=== PATIENT | male | born 1955 | race African-American/Black ===

== ENCOUNTER 2017-06-24 13:55 | Inpatient (IN) | payer SELFPAY ==
[~2017-06-24] VITALS: Ht 167.6 cm; Wt 93.0 kg
[~2017-06-24 13:55] MED LIST: PREV15CA20 PO
[2017-06-24 13:56] VITALS: BP 142/76; PULSE 96; RESP 18; TEMP 99.4; O2SAT 98
[2017-06-24] MEDS ORDERED: IOHEXOL 350 MG/ML 10 ML VIAL (for RAD DIAG) IVCONTRAST ONE (13:56)
--- NOTE | 2017-06-24 15:41 | PD ---
HPI Chief Complaint: Skin Problem Time Seen by Provider: 15:35 Travel History International Travel<30 days: No Contact w/Intl Traveler<30days: No Traveled to known affect area: No History of Present Illness HPI 62-year-old Afro-[place]ian male presents the emergency department. Large abscess to the right upper medial thigh/groin which she states started 2-3 days ago. Patient states it is grown in size with small amount of brownish drainage in the last 24 hours. Patient went to urgent care was noted to have a fever 102. Vital signs today show borderline tachycardia with a pulse rate of 96. Temperature in triage is 99. Blood pressure is normal. States pain in the groin area is about a 7 out of 10. He has history of sepsis in the past from previous prostate biopsy several years ago. Patient is allergic to tetracycline. The patient is not diabetic and has no history of MRSA. [facility] Social History Alcohol Use: Yes Tobacco Use: No Substance Use: No Allergies-Medications (Allergen,Severity, Reaction): Coded Allergies: Tetracyclines (Verified Allergy, Mild, Lethargy, 06/24/17) Reported Meds & Prescriptions Reported Meds & Active Scripts Active Reported Multiple Vitamin 1 Tab 1 Tab PO DAILY Aspirin 81 Mg Chew 81 Mg CHEW DAILY Prevacid (Lansoprazole) 15 Mg Capdr 15 Mg PO DAILY Review of Systems Except as stated in HPI: all other systems reviewed are Neg General / Constitutional: Positive: Fever, Chills Eyes: No: Visual changes HENT: No: Headaches Cardiovascular: No: Chest Pain or Discomfort Respiratory: No: Shortness of Breath Gastrointestinal: No: Abdominal Pain Genitourinary: No: Dysuria Musculoskeletal: Positive: Myalgias, No: Pain Skin: Positive Lesions (see history of present illness), No Rash Neurologic: No: Weakness Psychiatric: No: Depression Endocrine: No: Polydipsia Hematologic/Lymphatic: No: Easy Bruising Physical Exam Narrative GENERAL: Patient appears stable at time of exam 00 uncomfortable. SKIN: Warm and dry. Normal color. Normal turgor. Patient has a large indurated swollen firm tender erythematous painful area to the right upper medial thigh consistent with large abscess with central necrosis and small amount of brownish drainage. It does not seem to extend into the scrotal area or perineum. The area measures approximately 12 cm x 10 cm. HEAD: Atraumatic. Normocephalic. EYES: Pupils equal and round. No scleral icterus. No injection or drainage. ENT: No nasal bleeding or discharge. Mucous membranes pink and moist. Pharynx clear, airway patent. NECK: Trachea midline. Supple and nontender. CARDIOVASCULAR: Regular rate and rhythm. RESPIRATORY: No accessory muscle use. Clear to auscultation. Breath sounds equal bilaterally. GASTROINTESTINAL: Abdomen soft, non-tender, nondistended. Hepatic and splenic margins not palpable. MUSCULOSKELETAL: Extremities without clubbing, cyanosis, or edema. No obvious deformities. NEUROLOGICAL: Awake and alert. No obvious cranial nerve deficits. Motor grossly within normal limits. Five out of 5 muscle strength in the arms and legs. Normal speech. PSYCHIATRIC: Appropriate mood and affect; insight and judgment normal. Data Data Last Documented VS Vital Signs Date Time Temp Pulse Resp B/P (MAP) Pulse Ox O2 Delivery O2 Flow Rate FiO2 06/24/17 16:18 101.2 87 17 131/84 (100) 98 Room Air Orders Orders Complete Blood Count With Diff (06/24/17 14:06) Basic Metabolic Panel (Bmp) (06/24/17 14:06) Act Partial Throm Time (Ptt) (06/24/17 14:06) Prothrombin Time / Inr (Pt) (06/24/17 14:06) Blood Culture (06/24/17 15:46) Wound Culture And Gram Stain (06/24/17 15:46) Iv Access Insert/Monitor (06/24/17 15:46) Ketorolac Inj (Toradol Inj) (06/24/17 16:00) Sodium Chloride 0.9% Flush (Ns Flush) (06/24/17 16:00) Clindamycin Inj (Cleocin Inj) (06/24/17 16:00) Lactic Acid (06/24/17 15:46) Ct Femur W Iv Contrast (06/24/17 ) Clindamycin 900 Mg/Ns Premix (Cleocin 90 (06/24/17 16:30) Iohexol 350 Inj (Omnipaque 350 Inj) (06/24/17 13:56) Vancomycin Inj (Vancomycin Inj) (06/24/17 17:30) Piperacil-Tazo 4.5 Gm Premix (Zosyn 4.5 (06/24/17 17:30) Admit Order (Ed Use Only) (06/24/17 17:23) Admit To Inpatient (06/24/17 ) Vital Signs (Adult) Q4H (06/24/17 17:24) Activity Oob With Assistance (06/24/17 17:24) Sodium Chloride 0.9% Flush (Ns Flush) (06/24/17 17:30) Sodium Chloride 0.9% Flush (Ns Flush) (06/24/17 21:00) Acetaminophen (Tylenol) (06/24/17 17:30) Ondansetron Inj (Zofran Inj) (06/24/17 17:30) Scd Bilateral/Knee High JUANY.BID (06/24/17 17:24) Naloxone Inj (Narcan Inj) (06/24/17 17:30) Bisacodyl Supp (Dulcolax Supp) (06/24/17 17:30) Inpatient Certification (06/24/17 ) Vancomycin Consult Pharmacy (Vancomycin (06/24/17 17:30) Piperacil-Tazo 3.375 Gm Premix (Zosyn 3. (06/24/17 22:30) Labs Laboratory Tests Test 06/24/17 15:03 06/24/17 16:00 06/24/17 16:18 White Blood Count 13.0 TH/MM3 Red Blood Count 5.37 MIL/MM3 Hemoglobin 16.6 GM/DL Hematocrit 48.4 % Mean Corpuscular Volume 90.0 FL Mean Corpuscular Hemoglobin 30.9 PG Mean Corpuscular Hemoglobin Concent 34.3 % Red Cell Distribution Width 14.0 % Platelet Count 226 TH/MM3 Mean Platelet Volume 7.9 FL Neutrophils (%) (Auto) 79.4 % Lymphocytes (%) (Auto) 10.6 % Monocytes (%) (Auto) 8.3 % Eosinophils (%) (Auto) 1.1 % Basophils (%) (Auto) 0.6 % Neutrophils # (Auto) 10.3 TH/MM3 Lymphocytes # (Auto) 1.4 TH/MM3 Monocytes # (Auto) 1.1 TH/MM3 Eosinophils # (Auto) 0.1 TH/MM3 Basophils # (Auto) 0.1 TH/MM3 CBC Comment DIFF FINAL Differential Comment Blood Urea Nitrogen 13 MG/DL Creatinine 1.08 MG/DL Random Glucose 104 MG/DL Calcium Level 8.9 MG/DL Sodium Level 135 MEQ/L Potassium Level 4.4 MEQ/L Chloride Level 102 MEQ/L Carbon Dioxide Level 28.9 MEQ/L Anion Gap 4 MEQ/L Estimat Glomerular Filtration Rate 84 ML/MIN Lactic Acid Level 1.8 mmol/L Prothrombin Time 10.1 SEC Prothromb Time International Ratio 1.0 RATIO Activated Partial Thromboplast Time 27.5 SEC MDM Medical Decision Making Medical Screen Exam Complete: Yes Emergency Medical Condition: Yes Differential Diagnosis Cellulitis. Abscess. Sepsis. MRSA. Narrative Course Patient is medically stable at time of exam. Laboratory CBC, CMP, lactic acid, blood cultures 2, coagulation studies and urinalysis. Wound culture is collected and sent to the lab. IV access is obtained patient is given 1000 mL was normal saline bolus. Patient is given 900 mg clindamycin IV. Patient is given Toradol [address] of the right femur with IV contrast is ordered to evaluate abscess extension. CBC shows leukocytosis of 13.0. Coagulation studies are unremarkable Chemistry shows sodium 135, normal BUN/creatinine, GFR is 84, lactic acid is normal at 1.8. Patient is noted to spike a fever to 101. Patient qualifies for sepsis criteria. Patient discussed with Dr. Samaniego who examined the patient as well. He recommends adding Zosyn and vancomycin to the antibiotic coverage. CT scan shows: There is a very impressive soft tissue swelling and skin thickening in the anteromedial right thigh. There is a 2.2 cm air collection within the subcutaneous fat. Just posterior to the air collection there is a small collection of fluid measuring 1.8 cm across. There is very impressive induration of the subcutaneous fat. The air collection is directly underneath the skin. Call was placed hospitalist to admit the patient. Surgical consult will be determined by the hospitalist. Sepsis Criteria SIRS Criteria (2 or more): Temp > 100.9 or < 96.8, Heart rate over 90, WBC > 83829, < 4000 or > 10% bands Sepsis Criteria (SIRS+source): Infect source susp/known Criteria Outcome: Meets SIRS criteria, Meets sepsis criteria Diagnosis Primary Impression: Sepsis affecting skin Admitting Information Admitting Physician Requests: Admit Condition: Stable Cristian Brown Jun 24, 2017 15:41
[2017-06-24 15:53] LABS: AUTOMATED NEUTROPHIL # 10.3 TH/MM3 (1.8-7.7); BASOPHIL # 0.1 TH/MM3 (0-0.2); BASOPHIL % 0.6 % (0.0-2.0); EOSINOPHIL # 0.1 TH/MM3 (0-0.4); EOSINOPHIL % 1.1 % (0.0-4.0); HEMATOCRIT 48.4 % (39.0-51.0); HEMOGLOBIN 16.6 GM/DL (13.0-17.0); LYMPH % 10.6 % (9.0-44.0); LYMPHOCYTE # 1.4 TH/MM3 (1.0-4.8); MEAN CORPUSCULAR HEMOGLOBIN 30.9 PG (27.0-34.0); MEAN CORPUSCULAR HGB CONC 34.3 % (32.0-36.0); MEAN PLATELET VOLUME 7.9 FL (7.0-11.0); MONO % 8.3 % (0.0-8.0); MONOCYTE # 1.1 TH/MM3 (0-0.9); NEUT % 79.4 % (16.0-70.0); PLATELET COUNT 226 TH/MM3 (150-450); RED BLOOD COUNT 5.37 MIL/MM3 (4.50-5.90)
[2017-06-24] MEDS ORDERED: ASPI-516 CHEW (15:56)
[2017-06-24] MEDS ORDERED: MULTTAB67 PO (15:56)
[2017-06-24 15:59] LABS: BICARBONATE 28.9 MEQ/L (21.0-32.0); CALCIUM 8.9 MG/DL (8.5-10.1); CREATININE 1.08 MG/DL (0.60-1.30)
[2017-06-24] MEDS ORDERED: SODIUM CHLORIDE 0.9% FLUSH 10 ML FLUSH IVF PRN (16:00)
[2017-06-24] MEDS ORDERED: CLINDAMYCIN INJ 900 MG in SODIUM CHLORIDE 0.9% INJ 100 ML IV ONE (16:00)
[2017-06-24] MEDS ORDERED: KETOROLAC TROMETHAMINE 30 MG/ML (IVP) VIAL IVP ONE (16:00)
[2017-06-24 16:18] VITALS: BP 131/84; PULSE 87; RESP 17; TEMP 101.2; O2SAT 98
--- NOTE | 2017-06-24 16:22 | PD ---
Data Data Last Documented VS Vital Signs Date Time Temp Pulse Resp B/P (MAP) Pulse Ox O2 Delivery O2 Flow Rate FiO2 06/24/17 16:18 101.2 87 17 131/84 (100) 98 Room Air Orders Orders Complete Blood Count With Diff (06/24/17 14:06) Basic Metabolic Panel (Bmp) (06/24/17 14:06) Act Partial Throm Time (Ptt) (06/24/17 14:06) Prothrombin Time / Inr (Pt) (06/24/17 14:06) Blood Culture (06/24/17 15:46) Wound Culture And Gram Stain (06/24/17 15:46) Iv Access Insert/Monitor (06/24/17 15:46) Ketorolac Inj (Toradol Inj) (06/24/17 16:00) Sodium Chloride 0.9% Flush (Ns Flush) (06/24/17 16:00) Clindamycin Inj (Cleocin Inj) (06/24/17 16:00) Lactic Acid (06/24/17 15:46) Ct Femur W Iv Contrast (06/24/17 ) Clindamycin 900 Mg/Ns Premix (Cleocin 90 (06/24/17 16:30) Iohexol 350 Inj (Omnipaque 350 Inj) (06/24/17 13:56) Vancomycin Inj (Vancomycin Inj) (06/24/17 17:30) Piperacil-Tazo 4.5 Gm Premix (Zosyn 4.5 (06/24/17 17:30) Admit Order (Ed Use Only) (06/24/17 17:23) Labs Laboratory Tests Test 06/24/17 15:03 06/24/17 16:00 06/24/17 16:18 White Blood Count 13.0 TH/MM3 Red Blood Count 5.37 MIL/MM3 Hemoglobin 16.6 GM/DL Hematocrit 48.4 % Mean Corpuscular Volume 90.0 FL Mean Corpuscular Hemoglobin 30.9 PG Mean Corpuscular Hemoglobin Concent 34.3 % Red Cell Distribution Width 14.0 % Platelet Count 226 TH/MM3 Mean Platelet Volume 7.9 FL Neutrophils (%) (Auto) 79.4 % Lymphocytes (%) (Auto) 10.6 % Monocytes (%) (Auto) 8.3 % Eosinophils (%) (Auto) 1.1 % Basophils (%) (Auto) 0.6 % Neutrophils # (Auto) 10.3 TH/MM3 Lymphocytes # (Auto) 1.4 TH/MM3 Monocytes # (Auto) 1.1 TH/MM3 Eosinophils # (Auto) 0.1 TH/MM3 Basophils # (Auto) 0.1 TH/MM3 CBC Comment DIFF FINAL Differential Comment Blood Urea Nitrogen 13 MG/DL Creatinine 1.08 MG/DL Random Glucose 104 MG/DL Calcium Level 8.9 MG/DL Sodium Level 135 MEQ/L Potassium Level 4.4 MEQ/L Chloride Level 102 MEQ/L Carbon Dioxide Level 28.9 MEQ/L Anion Gap 4 MEQ/L Estimat Glomerular Filtration Rate 84 ML/MIN Lactic Acid Level 1.8 mmol/L Prothrombin Time 10.1 SEC Prothromb Time International Ratio 1.0 RATIO Activated Partial Thromboplast Time 27.5 SEC MDM Supervised Visit with JENNIFER: Yes Narrative Course I, Dr. Antunez, have reviewed the advance practice practitioner's documentation and am in agreement, met with the patient face to face, made the diagnosis, and the medical decision making was done by me. *My assessment and Findings: Patient seen in examined by me in addition to Josse Brown PAC, patient has abscess on the upper inner thigh incredibly foul- smelling. Surrounding cellulitis, no involvement of the scrotum in penis at this time. Patient appears well, symptoms for the past 2-3 days, not rapidly expanding, no crepitance, is not actively draining. CAT scan shows focalized collection of air probably consistent with a necrotic abscess but there as no air that I can see tracking along the fascial planes which supports my low suspicion of necrotizing fasciitis. The sodium is not normal, further refuting the diagnosis of n necrotizing fasciitis. Patient will be admitted, started on broad-spectrum antibiotics including vancomycin Zosyn and clindamycin. Discussed with medicine. Diagnosis Primary Impression: Sepsis affecting skin Condition: Stable Colt Antunez MD Jun 24, 2017 16:22
[2017-06-24] MEDS ORDERED: CLINDAMYCIN 900 MG/NS PREMIX 50 ML IV ONE (16:30)
[2017-06-24 16:36] LABS: PROTHROMBIN TIME - PATIENT 10.1 SEC (9.8-11.6)
--- NOTE | 2017-06-24 17:09 | RADRPT ---
EXAM DATE/TIME: 06/24/2017 16:35 [place] COMPARISON: No previous studies available for comparison. INDICATIONS : Right femur abscess. IV CONTRAST: 92 cc Omnipaque 350 (iohexol) IV RADIATION DOSE: 15.89 CTDIvol (mGy) MEDICAL HISTORY : Carcinoma, prostate. SURGICAL HISTORY : Appendectomy. ENCOUNTER: Initial ACUITY: 3 days PAIN SCALE: 9/10 LOCATION: Right upper medial femur near groin. TECHNIQUE: Volumetric scanning of the femur was performed. Using automated exposure control and adjustment of t he mA and/or kV according to patient size, radiation dose was kept as low as reasonably achievable to obtain optimal diagnostic quality images. DICOM format image data is available electronically for review and comparison. FINDINGS: BONES: No evidence of fracture. Alignment is within normal limits. JOINTS: No evidence of joint narrowing or effusion. SOFT TISSUES: There is a very impressive soft tissue swelling and skin thickening in the anteromedial right thigh. There is a 2.2 cm air collection within the subcutaneous fat. Just posterior to the air collection th ere is a small collection of fluid measuring 1.8 cm across. There is very impressive induration of th e subcutaneous fat. The air collection is directly underneath the skin. CONCLUSION: Small collection of air and fluid directly underneath the skin wound. Markedly edematous subcutaneous fat and skin thickening in the anteromedial thigh. Scott Holden MD on June 24, 2017 at 17:04 Board Certified Radiologist. This report was verified electronically.
[2017-06-24] MEDS ORDERED: PIPERACIL-TAZO 4.5 GM PREMIX 100 ML IV ONE (17:30)
[2017-06-24] MEDS ORDERED: Vancomycin Consult Pharmacy 1 EA OTHER SCH (17:30)
[2017-06-24] MEDS ORDERED: ACETAMINOPHEN 325 MG TAB PO PRN (17:30)
[2017-06-24] MEDS ORDERED: VANCOMYCIN INJ 200 ML IV ONE (17:30)
[2017-06-24] MEDS ORDERED: NALOXONE HCL 0.4 MG/ML AMP IV PUSH PRN (17:30)
[2017-06-24] MEDS ORDERED: BISACODYL 10 MG SUPP RECTAL PRN (17:30)
[2017-06-24] MEDS ORDERED: SODIUM CHLORIDE 0.9% FLUSH 10 ML FLUSH IV FLUSH PRN (17:30)
[2017-06-24 17:47] VITALS: BP 102/55; PULSE 82; RESP 17; TEMP 99.8; O2SAT 97
[2017-06-24] MEDS ORDERED: VANCOMYCIN 1,000 MG/NS 250 ML IV ONE ×2 (18:00)
[2017-06-24 19:33] VITALS: BP 112/56; PULSE 80; RESP 17; O2SAT 99
[2017-06-24] MEDS ORDERED: ACETAMINOPHEN/HYDROcodone 325 MG/5 MG TAB PO PRN (20:30)
[2017-06-24] MEDS ORDERED: KETOROLAC TROMETHAMINE 30 MG/ML (IVP) VIAL IV PUSH PRN (20:30)
[2017-06-24] MEDS ORDERED: ACETAMINOPHEN/HYDROcodone 325 MG/7.5 MG TAB PO PRN (20:30)
--- NOTE | 2017-06-24 20:52 | HHI.HP ---
[facility] Primary [facility] Physician No Primary Care Physician Admission Diagnosis SEPSIS/Cellulitis/Abscess Diagnoses: Chief Complaint: Right thigh wound Travel History International Travel<30 Days: No Contact w/Intl Traveler <30 Da: No Traveled to Known Affected Are: No Sepsis Criteria SIRS Criteria (2 or more): Temp > 100.9 or < 96.8, Heart rate over 90 Sepsis Criteria (SIRS+source): Infect source susp/known History of Present Illness 62 y/o male with a history of gerd and prostate cancer presented to the ED with complains of a left thigh wound. Patient states 3 days ago he had a pimple on his right thigh near his groin that he tried to pop, and over the last few days it began draining brown drainage and is foul smelling. He does have associated fever and chills. Denies any chest pain, sob, nausea or vomiting. He denies any pain currently, states the pain was resolved with Toradol. Prior to the Toradol he states his pain was a 7/10 throbbing with no radiation or associated symptoms. Review of Systems Except as stated in HPI: all other systems reviewed are Neg Past Family Social History Past Medical History prostate cancer gerd Past Surgical History Proctectomy Cholecystectomy Reported Medications Reported Meds & Active Scripts Active Reported Multiple Vitamin 1 Tab 1 Tab PO DAILY Aspirin 81 Mg Chew 81 Mg CHEW DAILY Prevacid (Lansoprazole) 15 Mg Capdr 15 Mg PO DAILY Allergies: Coded Allergies: Tetracyclines (Verified Allergy, Mild, Lethargy, 06/24/17) Active Ordered Medications Current Medications Medications (Trade) Dose Ordered Sig/Anneliese Route Start Time Stop Time Status Last Admin (NS Flush) 2 ml UNSCH PRN IV FLUSH 06/24/17 17:30 (NS Flush) 2 ml BID IV FLUSH 06/24/17 21:00 (Tylenol) 650 mg Q4H PRN PO 06/24/17 17:30 (Zofran Inj) 4 mg Q6H PRN IVP 06/24/17 17:30 (Narcan Inj) 0.4 mg UNSCH PRN IV PUSH 06/24/17 17:30 (Dulcolax Supp) 10 mg DAILY PRN RECTAL 06/24/17 17:30 Pharmacy Profile Note 0 ml @ 0 mls/hr UNSCH OTHER 06/24/17 17:30 Piperacillin Sod/ Tazobactam Sod 50 ml @ 100 mls/hr Q6H IV 06/25/17 00:00 Vancomycin HCl 1000 mg/Sodium Chloride 250 ml @ 250 mls/hr Q12H IV 06/25/17 08:00 Family History Mom: HTN Dad: Kidney disease Social History Tobacco use: A few cigarettes a day Alcohol use: Occasionally Illicit drug use: Denies Physical Exam Vital Signs Vital Signs Date Time Temp Pulse Resp B/P (MAP) Pulse Ox O2 Delivery O2 Flow Rate FiO2 06/24/17 19:59 18 06/24/17 19:33 80 17 112/56 (74) 99 Room Air 06/24/17 17:47 82 17 102/55 (71) 97 Room Air 06/24/17 17:47 99.8 06/24/17 16:18 101.2 87 17 131/84 (100) 98 Room Air 06/24/17 13:56 99.4 96 18 142/76 (98) 98 Physical Exam GENERAL: This is a well-nourished, well-developed patient, in no apparent distress. SKIN: Right groin/ upper thigh lesion, draining brownish dressing, surrounding cellulitis, foul smelling HEAD: Atraumatic. Normocephalic. EYES: Pupils equal round and reactive. Extraocular motions intact. ENT: Nose without bleeding, purulent drainage or septal hematoma. Airway patent. NECK: Trachea midline. No JVD or lymphadenopathy. CARDIOVASCULAR: Regular rate and rhythm without murmurs, gallops, or rubs. RESPIRATORY: Clear to auscultation. Breath sounds equal bilaterally. No wheezes , rales, or rhonchi. GASTROINTESTINAL: Abdomen soft, non-tender, nondistended. No guarding. MUSCULOSKELETAL: Extremities without clubbing, cyanosis, or edema. Right thigh tenderness. No calf tenderness. NEUROLOGICAL: Awake and alert. Motor and sensory grossly within normal limits. Normal speech. Laboratory Laboratory Tests Test 06/24/17 15:03 06/24/17 16:00 06/24/17 16:18 White Blood Count 13.0 Red Blood Count 5.37 Hemoglobin 16.6 Hematocrit 48.4 Mean Corpuscular Volume 90.0 Mean Corpuscular Hemoglobin 30.9 Mean Corpuscular Hemoglobin Concent 34.3 Red Cell Distribution Width 14.0 Platelet Count 226 Mean Platelet Volume 7.9 Neutrophils (%) (Auto) 79.4 Lymphocytes (%) (Auto) 10.6 Monocytes (%) (Auto) 8.3 Eosinophils (%) (Auto) 1.1 Basophils (%) (Auto) 0.6 Neutrophils # (Auto) 10.3 Lymphocytes # (Auto) 1.4 Monocytes # (Auto) 1.1 Eosinophils # (Auto) 0.1 Basophils # (Auto) 0.1 CBC Comment DIFF FINAL Differential Comment Blood Urea Nitrogen 13 Creatinine 1.08 Random Glucose 104 Calcium Level 8.9 Sodium Level 135 Potassium Level 4.4 Chloride Level 102 Carbon Dioxide Level 28.9 Anion Gap 4 Estimat Glomerular Filtration Rate 84 Lactic Acid Level 1.8 Prothrombin Time 10.1 Prothromb Time International Ratio 1.0 Activated Partial Thromboplast Time 27.5 Date/Time Source Procedure Growth Status 06/24/17 16:00 Blood Peripheral Aerobic Blood Culture Pending Received 06/24/17 16:00 Blood Peripheral Anaerobic Blood Culture Pending Received 06/24/17 16:00 Wound Drainage Gram Stain - Final Resulted 06/24/17 16:00 Wound Drainage Wound Culture Pending Resulted Result Diagram: 06/24/17 1503 06/24/17 1503 Imaging Last Impressions Lower Extremity CT 06/24/17 0000 Signed Impressions: Service Date/Time: June 16:35 - CONCLUSION: Small collection of air and fluid directly underneath the skin wound. Markedly edematous subcutaneous fat and skin thickening in the anteromedial thigh. Scott Holden MD [place] VTE Risk Assessment Caprini VTE Risk Assessment: No/Low Risk (score <= 1) Caprini Risk Assessment Model Point Value = 1 Point Value = 2 Point Value = 3 Point Value = 5 Age 41-60 Minor surgery BMI > 25 kg/m2 Swollen legs Varicose veins or History of unexplained or recurrent spontaneous Oral contraceptives or hormone replacement Sepsis (< 1 month) Serious lung disease, including pneumonia (< 1 month) Abnormal pulmonary function Acute myocardial infarction Congestive heart failure (< 1 month) History of inflammatory bowel disease Medical patient at bed rest Age 61-74 Arthroscopic surgery Major open surgery (> 45 min) Laparoscopic surgery (> 45 min) Malignancy Confined to bed (> 72 hours) Immobilizing plaster cast Central venous access Age >= 75 History of VTE Family history of VTE Factor V Leiden Prothrombin 30632A Lupus anticoagulant Anticardiolipin antibodies Elevated serum homocysteine Heparin-induced thrombocytopenia Other congenital or acquired thrombophilia Stroke (< 1 month) Elective arthroplasty Hip, pelvis, or leg fracture Acute spinal cord injury (< 1 month) Prophylaxis Regimen Total Risk Factor Score Risk Level Prophylaxis Regimen 0-1 Low Early ambulation 2 Moderate Order ONE of the following: *Sequential Compression Device (SCD) *Heparin 5000 units SQ BID 3-4 Higher Order ONE of the following medications: *Heparin 5000 units SQ TID *Enoxaparin/Lovenox 40 mg SQ daily (WT < 150 kg, CrCl > 30 mL/min) *Enoxaparin/Lovenox 30 mg SQ daily (WT < 150 kg, CrCl > 10-29 mL/min) *Enoxaparin/Lovenox 30 mg SQ BID (WT < 150 kg, CrCl > 30 mL/min) AND/OR *Sequential Compression Device (SCD) 5 or more Highest Order ONE of the following medications: *Heparin 5000 units SQ TID (Preferred with Epidurals) *Enoxaparin/Lovenox 40 mg SQ daily (WT < 150 kg, CrCl > 30 mL/min) *Enoxaparin/Lovenox 30 mg SQ daily (WT < 150 kg, CrCl > 10-29 mL/min) *Enoxaparin/Lovenox 30 mg SQ BID (WT < 150 kg, CrCl > 30 mL/min) AND *Sequential Compression Device (SCD) Assessment and Plan Problem List: (1) Cellulitis ICD Code: L03.90 - Cellulitis, unspecified (2) Sepsis affecting skin ICD Code: A41.9 - Sepsis, unspecified organism Status: Acute Assessment and Plan 62 y/o male with a history of gerd and prostate cancer presented to the ED with complains of a left thigh wound. Sepsis per criteria, with cellulitis of the groin/thigh, foul smelling Temp 101.2, wbc 13.0, lactic 1.[address] reviewed and shows a small collection of air and fluid directly underneath the skin wound. Edematous subcutaneous fat and skin thickening in the anteromedial thigh. -IV antibiotics: Vancomycin and Zosyn -Consult general surgery for recommendations, possible I&D -Pain management with IV Toradol and PO [place] -Wound culture pending Gerd, chronic -Resume home medication DVT prophylaxis: SCDs Discussed Condition With Patient Physician Certification 2 Midnight Certification Type: Admission for Inpatient Services Order for Inpatient Services The services are ordered in accordance with Medicare regulations or non- Medicare payer requirements, as applicable. In the case of services not specified as inpatient-only, they are appropriately provided as inpatient services in accordance with the 2-midnight benchmark. Estimated LOS (days): 2 days is the estimated time the patient will need to remain in the hospital, assuming treatment plan goals are met and no additional complications. Post-Hospital Plan: Home Fannie Drummond Jun 24, 2017 20:52
[2017-06-24] MEDS: SODIUM CHLORIDE 0.9% FLUSH 10 ML FLUSH IV FLUSH SCH (21:00)
[2017-06-24 22:15] VITALS: BP 110/70; PULSE 66; RESP 20; TEMP 98.3; O2SAT 92
[2017-06-24] MEDS: PIPERACIL-TAZO 3.375 GM PREMIX 50 ML IV SCH (23:37)
[2017-06-25 01:32] VITALS: BP 102/55; PULSE 65; RESP 17; TEMP 98.2; O2SAT 96
[2017-06-25 04:13] VITALS: BP 113/65; PULSE 64; RESP 17; TEMP 98.5; O2SAT 96
[2017-06-25] MEDS: ONDANSETRON HCL 4 MG/2 ML VIAL IVP PRN ×2 (04:43→21:48)
[2017-06-25] MEDS: PIPERACIL-TAZO 3.375 GM PREMIX 50 ML IV SCH ×4 (05:33→23:24)
[2017-06-25 06:10] LABS: AUTOMATED NEUTROPHIL # 8.6 TH/MM3 (1.8-7.7); BASOPHIL % 0.3 % (0.0-2.0); EOSINOPHIL % 0.1 % (0.0-4.0); HEMOGLOBIN 14.8 GM/DL (13.0-17.0); LYMPH % 10.6 % (9.0-44.0); LYMPHOCYTE # 1.1 TH/MM3 (1.0-4.8); MEAN CELL VOLUME 90.8 FL (80.0-100.0); MEAN CORPUSCULAR HEMOGLOBIN 30.5 PG (27.0-34.0); MEAN CORPUSCULAR HGB CONC 33.6 % (32.0-36.0); MEAN PLATELET VOLUME 7.7 FL (7.0-11.0); MONO % 7.8 % (0.0-8.0); MONOCYTE # 0.8 TH/MM3 (0-0.9); NEUT % 81.2 % (16.0-70.0); PLATELET COUNT 212 TH/MM3 (150-450); RED BLOOD COUNT 4.85 MIL/MM3 (4.50-5.90); RED CELL DISTRIBUTION WIDTH 13.9 % (11.6-17.2); WHITE BLOOD COUNT 10.6 TH/MM3 (4.0-11.0)
[2017-06-25 06:40] LABS: BICARBONATE 27.6 MEQ/L (21.0-32.0); CALCIUM 8.2 MG/DL (8.5-10.1); CREATININE 0.85 MG/DL (0.60-1.30)
[2017-06-25 07:08] VITALS: BP 129/77; PULSE 68; RESP 18; TEMP 98.3; O2SAT 94
[2017-06-25] MEDS: SODIUM CHLORIDE 0.9% FLUSH 10 ML FLUSH IV FLUSH SCH ×2 (09:39→20:08)
[2017-06-25] MEDS: VANCOMYCIN 1,000 MG/NS 250 ML IV SCH ×4 (09:40→20:08)
[2017-06-25] MEDS ORDERED: LACTATED RINGER'S 1000 ML IV PRN (10:15)
[2017-06-25] MEDS ORDERED: SODIUM CHLORID 0.9% 500 ML IV PRN (10:15)
[2017-06-25] MEDS ORDERED: CHLORHEXIDINE GLUCONATE 2 % 1 PACK (2 CLOTHS) TOPICAL PRN (10:15)
[2017-06-25] MEDS ORDERED: POVIDONE IODINE 5% (ANTISEPSIS KIT) 4 APPLICATIONS EACH NARE PRN (10:15)
[2017-06-25] MEDS ORDERED: METOPROLOL TARTRATE 25 MG TAB PO PRN (10:15)
--- NOTE | 2017-06-25 11:00 | MB ---
cc: MARTIN SAVAGE M.D. DATE OF CONSULTATION: 06/25/2017 REASON FOR CONSULTATION: Right groin, thigh abscess. HISTORY OF PRESENT ILLNESS: This is a pleasant gentleman [place], he is on his way to [place], he has had three day history of groin drainage with erythema and tenderness. He came to the emergency room and was found to have an abscess and cellulitis in the right groin, thigh area, surgery was consulted for evaluation. The patient states that this started with small pimple like area and then started having fever. He came to the emergency room and was admitted to the medical service. PAST MEDICAL HISTORY: He denies any cardiac, pulmonary or genitourinary symptoms. MEDICATIONS: 1. Multivitamin 2. Aspirin 3. Prevacid ALLERGIES TETRACYCLINE REVIEW OF SYSTEMS He has had some fevers and chills, no visual changes, no headaches. CARDIOVASCULAR SYSTEM: Cardiovascular, no chest pain or discomfort. RESPIRATORY: No shortness of breath. GASTROINTESTINAL: No abdominal pain or constipation. GENITOURINARY: No genitourinary symptoms. NEUROLOGIC/PSYCHIATRIC: No problems. PHYSICAL EXAMINATION: IN GENERAL: He is awake, he is oriented, he is somewhat concerned about his medical condition. NECK: Neck supple. CHEST: Clear. HEART: Heart is regular rate. ABDOMEN: Slightly obese, soft. GENITALIA: Right groin area, medial thigh, there is a 2 cm necrotic area with erythema around it and cellulitic response with purulent material returning. Tender. LABORATORY DATA: He had a white count of 13 yesterday, now it is 10, hemoglobin and hematocrit 1444. Chemistries are normal. Coags are normal. IMAGING STUDIES: Thigh, leg shows collection of air and fluid under the skin with edema. ASSESSMENT: Deep subcutaneous abscess, partial drainage. PLAN: Formal irrigation and debridement and incision and drainage in the operating room. This was discussed with the patient. He appeared to understand and I called the operating room early this morning trying to get some time as soon as possible. MD ALICE Campa/zoraida /8:48 AM /10:44 AM
[2017-06-25 11:21] VITALS: BP 122/72; PULSE 65; RESP 18; TEMP 98; O2SAT 93
[2017-06-25] MEDS ORDERED: DEXAMETHASONE SOD PHOS 4 MG/ML VIAL IV ONE (12:00)
[2017-06-25] MEDS ORDERED: PROPOFOL 200 MG/20 ML AMP IV ONE (12:00)
[2017-06-25] MEDS ORDERED: KETOROLAC TROMETHAMINE 30 MG/ML (IVP) VIAL IV PUSH ONE (12:00)
[2017-06-25] MEDS ORDERED: ONDANSETRON HCL 4 MG/2 ML VIAL IV ONE (12:00)
[2017-06-25] MEDS ORDERED: MIDAZOLAM HCL 2 MG/2 ML VIAL ONE (14:03)
[2017-06-25] MEDS ORDERED: FAMOTIDINE 20 MG/2 ML VIAL ONE (14:05)
[2017-06-25] MEDS ORDERED: BUPIVACAINE HCL PF 0.25% 30 ML VIAL ONE (14:41)
--- NOTE | 2017-06-25 15:18 | HHI.PR ---
cc: Jaime Palmer MD Immediate Post Op Note Procedure Date: Jun 25, 2017 Pre Op Diagnosis: (1) Sepsis affecting skin (2) Cellulitis (3) Abscess of right thigh Post Op Diagnosis: (1) Sepsis affecting skin (2) Cellulitis (3) Abscess of right thigh Surgeon: Jaime Palmer Building Principal(s): Refer to or record Procedure: Incision and drainage with irrigation and debridement of necrotic scan right thigh upper inner Placement of VAC dressing covering defect measuring 6 x 7 cm approximately 2 cm deep Specimen(s) removed: Necrotic skin and subcutaneous tissue fascia adipose tissue Anesthesia: MAC Drains: None, Other (VAC dressing drain) IVF Patient to: PACU Patient Condition: Good Implant/Devices: SEE IMPLANT LOG (if applicable) Date/Time of Procedure: SEE SURGICAL CARE RECORD Jaime Palmer MD Jun 25, 2017 15:18
[2017-06-25] MEDS ORDERED: DO NOT ADM ANY ANTICOAGULANT DRUGS PRN (15:30)
--- NOTE | 2017-06-25 18:27 | HHI.PR ---
Subjective Remarks Patient seen following surgery this afternoon. Says he's feeling all right. Reports pain is controlled. Denies any chest pain or shortness of breath. Objective Vital Signs Date Time Temp Pulse Resp B/P (MAP) Pulse Ox O2 Delivery O2 Flow Rate FiO2 06/25/17 16:15 67 18 114/68 (83) 98 06/25/17 16:00 68 20 110/62 (78) 98 06/25/17 15:45 74 22 91/54 (66) 96 Nasal Cannula 2 06/25/17 15:33 97.7 78 16 108/59 (75) 95 Simple Mask 6 06/25/17 11:21 98.0 65 18 122/72 (89) 93 06/25/17 07:08 98.3 68 18 129/77 (94) 94 06/25/17 04:13 98.5 64 17 113/65 (81) 96 06/25/17 01:32 98.2 65 17 102/55 (71) 96 06/24/17 22:15 98.3 66 20 110/70 (83) 92 06/24/17 22:02 06/24/17 19:59 18 06/24/17 19:33 80 17 112/56 (74) 99 Room Air I/O 06/24/17 06/24/17 06/24/17 06/25/17 06/25/17 06/25/17 07:00 15:00 23:00 07:00 15:00 23:00 Intake Total 150 ml 700 ml Output Total 50 ml Balance 150 ml 650 ml Intake IV Total 150 ml Other 700 ml Output Estimated Blood Loss 50 ml Result Diagram: 06/25/1734006/25/17 0341 Objective Remarks GENERAL: Patient sitting up in bed. Appears comfortable. SKIN: Warm and dry. HEAD: Normocephalic. EYES: No scleral icterus. No injection or drainage. NECK: Supple, trachea midline. No JVD or lymphadenopathy. CARDIOVASCULAR: Regular rate and rhythm without murmurs, gallops, or rubs. RESPIRATORY: Breath sounds equal bilaterally. No accessory muscle use. GASTROINTESTINAL: Abdomen soft, non-tender, nondistended. MUSCULOSKELETAL: No cyanosis, or edema. Wound VAC to right groin wound. BACK: Nontender without obvious deformity. No CVA tenderness. A/P Assessment and Plan 62 y/o male with a history of gerd and prostate cancer presented to the ED with complains of a left thigh wound. //Sepsis per criteria, with cellulitis of the groin/thigh, foul smelling Temp 101.2, wbc 13.0, lactic 1.[address] reviewed and shows a small collection of air and fluid directly underneath the skin wound. Edematous subcutaneous fat and skin thickening in the anteromedial thigh. -IV antibiotics: Vancomycin and Zosyn -Consult general surgery for recommendations, possible I&D -Pain management with IV Toradol and PO [place] -Wound culture pending = 06/25. Reviewed CT scan. necrotic tissue removed surgically, wound VAC placed. We'll add clindamycin, continue Vanco and Zosyn. Follow up cultures and sensitivities. c/s ID. //Gerd, chronic -cont home medication //DVT prophylaxis: SCDs Discharge Planning Pending ID consultation. Pendingculture sensitivities. Juan Jose Solano MD Jun 25, 2017 18:27
[2017-06-25 21:03] VITALS: BP 128/64; PULSE 64; RESP 20; TEMP 97.8; O2SAT 95
[2017-06-25] MEDS: CLINDAMYCIN 900 MG/NS PREMIX 50 ML IV SCH (21:48)
[2017-06-26 00:10] VITALS: BP 126/64; PULSE 67; RESP 20; TEMP 97.2; O2SAT 98
[2017-06-26] MEDS: PIPERACIL-TAZO 3.375 GM PREMIX 50 ML IV SCH ×4 (04:44→23:50)
[2017-06-26] MEDS: CLINDAMYCIN 900 MG/NS PREMIX 50 ML IV SCH ×3 (04:44→17:08)
[2017-06-26 05:18] VITALS: BP 119/61; PULSE 61; RESP 20; TEMP 97.7; O2SAT 95
[2017-06-26] MEDS ORDERED: PHARMACY ORDERED LAB ONE (07:45)
[2017-06-26 08:00] VITALS: BP 121/66; PULSE 63; RESP 14; TEMP 98; O2SAT 96
[2017-06-26] MEDS: VANCOMYCIN 1,000 MG/NS 250 ML IV SCH ×2 (08:00)
[2017-06-26] MEDS: MULTIVITAMIN TAB PO SCH (08:15)
[2017-06-26] MEDS: SODIUM CHLORIDE 0.9% FLUSH 10 ML FLUSH IV FLUSH SCH ×2 (08:16→19:47)
[2017-06-26] MEDS: PANTOPRAZOLE SOD 20 MG DELAYED RELEASE TAB PO SCH (08:16)
[2017-06-26 10:16] LABS: CREATININE 0.98 MG/DL (0.60-1.30)
[2017-06-26 10:18] LABS: VANCOMYCIN TROUGH 3.9 MCG/ML (5.0-10.0)
--- NOTE | 2017-06-26 10:34 | HHI.PR ---
Subjective Subjective Notes feels fine, watching TV, VAC in place, wants to go to [place] when cleared to travel Objective Vitals/I&O Vital Signs Date Time Temp Pulse Resp B/P (MAP) Pulse Ox O2 Delivery O2 Flow Rate FiO2 06/26/17 08:00 98.0 63 14 121/66 (84) 96 06/25/17 18:45 Nasal Cannula 2 Labs Laboratory Tests Test 06/26/17 09:30 Creatinine 0.98 Estimat Glomerular Filtration Rate 94 Vancomycin Level Trough 3.9 Date/Time Source Procedure Growth Status 06/24/17 16:00 Blood Peripheral Aerobic Blood Culture - Preliminary NO GROWTH IN 1 DAY Resulted 06/24/17 16:00 Blood Peripheral Anaerobic Blood Culture - Preliminary NO GROWTH IN 1 DAY Resulted 06/25/17 15:05 Wound Groin Fungal Smear - Final NO FUNGAL ELEMENTS SEEN. Resulted 06/25/17 15:05 Wound Groin Fungal Culture Pending Resulted Wound Wound : Wound Location: Right leg Dressing: VAC A/P Assessment and Plan s/p ID RIGHT thigh abscess advised patient we can likely remove VAC and transition to Wet to Dry dressings Wednesday am await cultures - will need definitive po abx prior to DC plan DC Wednesday am if cultures back. can do wet to dry at hotel in [place]. SAL Palmer and he agrees with plan. Clark Barton MD Jun 26, 2017 10:33
[2017-06-26 12:00] VITALS: BP 118/60; PULSE 61; RESP 16; TEMP 97.4; O2SAT 93
--- NOTE | 2017-06-26 13:13 | EKG ---
Date Performed: 06/25/2017 Time Performed: 13:20:48 PTAGE: 62 years EKG: Sinus rhythm NORMAL ECG NO PREVIOUS TRACING DOCTOR: Luis Tillman Interpretating Date/Time 06/26/2017 13:13:18
--- NOTE | 2017-06-26 13:32 | HHI.PR ---
Subjective Remarks Pain controlled. No nausea or vomiting. Appetite is good. Objective Vitals Vital Signs Date Time Temp Pulse Resp B/P (MAP) Pulse Ox O2 Delivery O2 Flow Rate FiO2 06/26/17 12:00 97.4 61 16 118/60 (79) 93 06/26/17 08:00 98.0 63 14 121/66 (84) 96 06/26/17 05:18 97.7 61 20 119/61 (80) 95 06/26/17 00:10 97.2 67 20 126/64 (84) 98 06/25/17 21:03 97.8 64 20 128/64 (85) 95 06/25/17 18:45 64 16 114/71 (85) 97 Nasal Cannula 2 06/25/17 18:00 64 19 113/68 (83) 97 06/25/17 17:00 76 18 127/59 (81) 97 06/25/17 16:15 67 18 114/68 (83) 98 06/25/17 16:00 68 20 110/62 (78) 98 06/25/17 15:45 74 22 91/54 (66) 96 Nasal Cannula 2 06/25/17 15:33 97.7 78 16 108/59 (75) 95 Simple Mask 6 I/O 06/25/17 06/25/17 06/25/17 06/26/17 06/26/17 06/26/17 07:00 15:00 23:00 07:00 15:00 23:00 Intake Total 950 ml 50 ml Output Total 50 ml 1000 ml Balance 900 ml -950 ml Intake Oral 200 ml IV Total 50 ml 50 ml Other 700 ml Output Urine Total 1000 ml Estimated Blood Loss 50 ml # Voids 1 Result Diagram: 06/25/17 0341 06/26/17 0930 Imaging Last Impressions Lower Extremity CT 06/24/17 0000 Signed Impressions: Service Date/Time: June 16:35 - CONCLUSION: Small collection of air and fluid directly underneath the skin wound. Markedly edematous subcutaneous fat and skin thickening in the anteromedial thigh. Scott Holden MD Objective Remarks GENERAL: Patient sitting up in bed. Appears comfortable. SKIN: Warm and dry. HEAD: Normocephalic. EYES: No scleral icterus. No injection or drainage. NECK: Supple, trachea midline. CARDIOVASCULAR: Regular rate and rhythm without murmurs, gallops, or rubs. RESPIRATORY: Breath sounds equal bilaterally. No accessory muscle use. GASTROINTESTINAL: Abdomen soft, non-tender, nondistended. MUSCULOSKELETAL: No edema. Wound VAC to right groin wound, no erythema. A/P Problem List: (1) Cellulitis ICD Code: L03.90 - Cellulitis, unspecified (2) Sepsis affecting skin ICD Code: A41.9 - Sepsis, unspecified organism Status: Acute Assessment and Plan 62 y/o male with a history of gerd and prostate cancer presented to the ED with complains of a left thigh wound. //Sepsis per criteria, with cellulitis of the groin/thigh, foul smelling Temp 101.2, wbc 13.0, lactic 1.[address] reviewed and shows a small collection of air and fluid directly underneath the skin wound. Edematous subcutaneous fat and skin thickening in the anteromedial thigh. -IV antibiotics: Vancomycin/Zosyn/clinda -General surgery following, s/p I&D and wound vac placement. -Pain management with IV Toradol and PO [place] -Wound culture pending ID consult in place. //Gerd, chronic -cont home medication //DVT prophylaxis: SCDs Discharge Planning Pending ID consultation. Pending culture sensitivities. Johanna Arce MD Jun 26, 2017 13:32
[2017-06-26 16:00] VITALS: BP 115/55; PULSE 60; RESP 18; TEMP 97.8; O2SAT 95
[2017-06-26] MEDS ORDERED: VANCOMYCIN 1,000 MG/NS 250 ML IV SCH ×2 (16:00)
[2017-06-26 20:00] VITALS: BP 104/64; PULSE 61; RESP 16; TEMP 96.3; O2SAT 96
--- NOTE | 2017-06-26 20:04 | PD.ID.CON ---
History of Present Illness Service ID Consult Requested By Dr Solano Reason for Consult R thigh nec fasc Primary Care Physician No Primary Care Physician Diagnoses: History of Present Illness 62 yo male with h/o prostate cancer in remission presented with 5 days of swollen painful lesion of R inner thigh that start to drain foul smelling discharge, accompomyed by fever, chills On presentation fever 101.3 WBC 13 k He was diagnosed with gas producing soft tisse infection by radiological studies and went to OR for I+D and VAC placement After surgery he improved, fever , leukocytosis resolved and his pain also resolved Hie clx gew mixed anaerobs He is on broad spectrum abx and improving Review of Systems Except as stated in HPI: all other systems reviewed are Neg Past Family Social History Allergies: Coded Allergies: Tetracyclines (Verified Allergy, Mild, Lethargy, 06/24/17) Past Medical History prostate cancer gerd Past Surgical History Proctectomy Cholecystectomy Active Ordered Medications Medications where reviewed in EMR Antibiotics Include: vanco clinda zosyn Family History Mom: HTN Dad: Kidney disease Social History Tobacco use: A few cigarettes a day Alcohol use: Occasionally Illicit drug use: Denies Physical Exam Vital Signs Vital Signs Date Time Temp Pulse Resp B/P (MAP) Pulse Ox O2 Delivery O2 Flow Rate FiO2 06/26/17 16:00 97.8 60 18 115/55 (75) 95 06/26/17 12:00 97.4 61 16 118/60 (79) 93 06/26/17 08:00 98.0 63 14 121/66 (84) 96 06/26/17 05:18 97.7 61 20 119/61 (80) 95 06/26/17 00:10 97.2 67 20 126/64 (84) 98 06/25/17 21:03 97.8 64 20 128/64 (85) 95 Physical Exam CONSTITUTIONAL/GENERAL: This is an adequately nourished patient, in no apparent distress. TUBES/LINES/DRAINS: SKIN: No jaundice, rashes, or lesions. Skin temperature appropriate. Not diaphoretic. HEAD: Atraumatic. Normocephalic. EYES: Pupils equal and round and reactive. No scleral icterus. No injection or drainage. Fundi not examined. ENT: Hearing grossly normal. Nose without bleeding or purulent drainage. Throat without visible erythema, exudates, masses, or lesions. NECK: Trachea midline. Supple, nontender. No palpable thyroid enlargement or nodularity. CARDIOVASCULAR: Regular rate and rhythm without murmurs, gallops, or rubs. RESPIRATORY/CHEST: Symmetric, unlabored respirations. Clear to auscultation. Breath sounds equal bilaterally. No wheezes, rales, or rhonchi. GASTROINTESTINAL: Abdomen soft, non-tender, nondistended. No hepato-splenomegaly , or palpable masses. No guarding. Bowel sounds present. MUSCULOSKELETAL: Extremities without clubbing, cyanosis, or edema. VAC in place in R upper medial thigh with serosangious dc SOme induration and etyhema noted No fluctuance NEUROLOGICAL: Awake and alert. Motor and sensory grossly within normal limits. Follows commands. Clear speech. Moves all extremities. PSYCHIATRIC: No obvious anxiety/depression. no apparent hallucinations or other psychotic thought process. Laboratory Laboratory Tests Test 06/26/17 09:30 Creatinine 0.98 Estimat Glomerular Filtration Rate 94 Vancomycin Level Trough 3.9 Date/Time Source Procedure Growth Status 06/24/17 16:00 Blood Peripheral Aerobic Blood Culture - Preliminary NO GROWTH IN 2 DAYS Resulted 06/24/17 16:00 Blood Peripheral Anaerobic Blood Culture - Preliminary NO GROWTH IN 2 DAYS Resulted 06/25/17 15:05 Wound Groin Fungal Smear - Final NO FUNGAL ELEMENTS SEEN. Resulted 06/25/17 15:05 Wound Groin Fungal Culture Pending Resulted Result Diagram: 06/25/17 0341 06/26/17 0930 Imaging Last Impressions Lower Extremity CT 06/24/17 0000 Signed Impressions: Service Date/Time: June 16:35 - CONCLUSION: Small collection of air and fluid directly underneath the skin wound. Markedly edematous subcutaneous fat and skin thickening in the anteromedial thigh. Scott Holden MD Assessment and Plan Assessment and Plan Abscess R thigh, anaerobic infection cont zosyn dc vanco and clind anticipate transition to po abx (augmentin 500 tid) to complete 10-14 days of tx Eufemia Guzman MD Jun 26, 2017 20:04
--- NOTE | 2017-06-26 20:48 | MP ---
cc: MARTIN PALMER DATE OF SURGERY 06/25/17 PREOPERATIVE DIAGNOSIS Abscess to the right inner upper thigh. POSTOPERATIVE DIAGNOSIS Necrotic tissue with abscess upper inner thigh on the right side. area measuring 6 x 8 cm PROCEDURE 1. Irrigation debridement, incision and drainage with culture of necrotic tissue, removing skin, subcutaneous tissue and fascia and necrotic fatty tissue. 2. Culture 3. Placement of VAC device on defect measuring 7 x 6 cm. ANESTHESIA Heavy sedation SURGEON Dr. Palmer INDICATIONS This is a pleasant 62-year-old gentleman who was found to have an abscess necrotic tissue on the inner thigh. Plans were made for above. PROCEDURE IN DETAIL The patient was taken to the operating room, placed in supine position. After anesthesia, his right thigh was shaved, prepped with Betadine. Time-out was done. He is already on scheduled antibiotics. We anesthetized the area with a Marcaine solution. An elliptical incision was made overlying the necrotic tissue, purulent material returns. This is cultured. All the necrotic skin, subcutaneous tissue, adipose tissue is excised using sharp dissection and blunt dissection and utilizing electrocautery to normal-appearing slightly swollen tissue. Hemostasis was assured with electrocautery device. We then cut a piece of the VAC dressing placing the sponge into the base of the wound and the occlusive dressing is applied and was placed up to suction with adequate seal. The patient tolerated the procedure well and had no immediate postop complications. Martin Palmer MD JRUBEN/ /3:11 PM /8:38 PM
[2017-06-27] VITALS: BP 102/56; PULSE 56; RESP 16; TEMP 97.9; O2SAT 94
[2017-06-27] MEDS: PIPERACIL-TAZO 3.375 GM PREMIX 50 ML IV SCH ×2 (06:04→12:13)
[2017-06-27] MEDS: SODIUM CHLORIDE 0.9% FLUSH 10 ML FLUSH IV FLUSH SCH (07:52)
[2017-06-27] MEDS: MULTIVITAMIN TAB PO SCH (07:52)
[2017-06-27] MEDS: PANTOPRAZOLE SOD 20 MG DELAYED RELEASE TAB PO SCH (07:52)
[2017-06-27 08:00] VITALS: BP 125/71; PULSE 61; RESP 17; TEMP 98.3; O2SAT 94
--- NOTE | 2017-06-27 10:58 | HHI.PR ---
Subjective Subjective Notes wants to go home Objective Vitals/I&O Vital Signs Date Time Temp Pulse Resp B/P (MAP) Pulse Ox O2 Delivery O2 Flow Rate FiO2 06/27/17 08:00 98.3 61 17 125/71 (89) 94 06/25/17 18:45 Nasal Cannula 2 Labs Date/Time Source Procedure Growth Status 06/24/17 16:00 Blood Peripheral Aerobic Blood Culture - Preliminary NO GROWTH IN 2 DAYS Resulted 06/24/17 16:00 Blood Peripheral Anaerobic Blood Culture - Preliminary NO GROWTH IN 2 DAYS Resulted 06/25/17 15:05 Wound Groin Fungal Smear - Final NO FUNGAL ELEMENTS SEEN. Resulted 06/25/17 15:05 Wound Groin Fungal Culture Pending Resulted Narrative Exam right thigh clean, dry intact VAC, no cellulitis A/P Assessment and Plan 62yo male s/p ID right thigh abscess, healing well, ok to DC home from surgery standpoint with ABX and wet-to-dry fu with PCP in home state Cristian Bonds MD Jun 27, 2017 10:58
[2017-06-27 12:00] VITALS: BP 128/78; PULSE 55; RESP 17; TEMP 97.3; O2SAT 95
[2017-06-27] MEDS ORDERED: HYDR-3516 PO (12:58)
[2017-06-27] MEDS ORDERED: ZOFR4TAB PO (13:03)
[2017-06-27] MEDS ORDERED: AUGM875T3 PO (13:03)
--- NOTE | 2017-06-27 13:03 | HHI.DS ---
Discharge Summary Admission Date Jun 24, 2017 at 17:25 Discharge Date: Jun 27, 2017 Admitting Diagnosis SEPSIS/Cellulitis/Abscess (1) Cellulitis ICD Code: L03.90 - Cellulitis, unspecified (2) Sepsis affecting skin ICD Code: A41.9 - Sepsis, unspecified organism Status: Acute Brief History - From Admission 62 y/o male with a history of gerd and prostate cancer presented to the ED with complains of a left thigh wound. Patient states 3 days ago he had a pimple on his right thigh near his groin that he tried to pop, and over the last few days it began draining brown drainage and is foul smelling. He does have associated fever and chills. Denies any chest pain, sob, nausea or vomiting. He denies any pain currently, states the pain was resolved with Toradol. Prior to the Toradol he states his pain was a 7/10 throbbing with no radiation or associated symptoms. CBC/BMP: 06/25/17 0341 06/26/17 0930 Significant Findings Laboratory Tests Test 06/24/17 15:03 06/24/17 16:00 06/24/17 16:18 06/25/17 03:41 White Blood Count 13.0 TH/MM3 (4.0-11.0) Neutrophils (%) (Auto) 79.4 % (16.0-70.0) 81.2 % (16.0-70.0) Monocytes (%) (Auto) 8.3 % (0.0-8.0) Neutrophils # (Auto) 10.3 TH/MM3 (1.8-7.7) 8.6 TH/MM3 (1.8-7.7) Monocytes # (Auto) 1.1 TH/MM3 (0-0.9) Sodium Level 135 MEQ/L (136-145) Anion Gap 4 MEQ/L (5-15) Estimat Glomerular Filtration Rate 84 ML/MIN (>89) Random Glucose 128 MG/DL (74-106) Calcium Level 8.2 MG/DL (8.5-10.1) Test 1/20/18 09:30 Vancomycin Level Trough 3.9 MCG/ML (5.0-10.0) PE at Discharge GENERAL: Patient sitting up in bed. Appears comfortable. SKIN: Warm and dry. HEAD: Normocephalic. EYES: No scleral icterus. No injection or drainage. NECK: Supple, trachea midline. CARDIOVASCULAR: Regular rate and rhythm without murmurs, gallops, or rubs. RESPIRATORY: Breath sounds equal bilaterally. No accessory muscle use. GASTROINTESTINAL: Abdomen soft, non-tender, nondistended. MUSCULOSKELETAL: No edema. Wound VAC to right groin wound, no erythema. Hospital Course //Sepsis per criteria, with cellulitis of the groin/thigh, foul smelling Temp 101.2, wbc 13.0, lactic 1.[address] reviewed and shows a small collection of air and fluid directly underneath the skin wound. Edematous subcutaneous fat and skin thickening in the anteromedial thigh. -IV antibiotics: Vancomycin/Zosyn/clinda -General surgery following, s/p I&D and wound vac placement. -Pain management with IV Toradol and PO [place] -Wound culture growing mixed anaerobes ID consult in place. Pt Condition on Discharge: Stable Discharge Disposition: Discharge Home Discharge Time: > 30 minutes Discharge Instructions DIET: Follow Instructions for: As Tolerated, No Restrictions Activities you can perform: See Additionl Instruction Other Activity Instructions: wet-to-dry dressing Johanna Arce MD Jun 27, 2017 13:03
[2017-06-27] MEDS ORDERED: AUGM500T7 PO (13:14)
--- NOTE | 2017-06-27 13:46 | HHI.DS ---
Discharge Summary Admission Date Jun 24, 2017 at 17:25 Discharge Date: Jun 27, 2017 Admitting Diagnosis SEPSIS/Cellulitis/Abscess (1) Cellulitis ICD Code: L03.90 - Cellulitis, unspecified (2) Sepsis affecting skin ICD Code: A41.9 - Sepsis, unspecified organism Status: Acute Procedures s/p I&D and wound vac placement. Brief History - From Admission 62 y/o male with a history of gerd and prostate cancer presented to the ED with complains of a left thigh wound. Patient states 3 days ago he had a pimple on his right thigh near his groin that he tried to pop, and over the last few days it began draining brown drainage and is foul smelling. He does have associated fever and chills. Denies any chest pain, sob, nausea or vomiting. He denies any pain currently, states the pain was resolved with Toradol. Prior to the Toradol he states his pain was a 7/10 throbbing with no radiation or associated symptoms. CBC/BMP: 06/25/17 0341 06/26/17 0930 Significant Findings Laboratory Tests Test 06/24/17 15:03 06/24/17 16:00 06/24/17 16:18 06/25/17 03:41 White Blood Count 13.0 TH/MM3 (4.0-11.0) Neutrophils (%) (Auto) 79.4 % (16.0-70.0) 81.2 % (16.0-70.0) Monocytes (%) (Auto) 8.3 % (0.0-8.0) Neutrophils # (Auto) 10.3 TH/MM3 (1.8-7.7) 8.6 TH/MM3 (1.8-7.7) Monocytes # (Auto) 1.1 TH/MM3 (0-0.9) Sodium Level 135 MEQ/L (136-145) Anion Gap 4 MEQ/L (5-15) Estimat Glomerular Filtration Rate 84 ML/MIN (>89) Random Glucose 128 MG/DL (74-106) Calcium Level 8.2 MG/DL (8.5-10.1) Test 06/26/17 09:30 Vancomycin Level Trough 3.9 MCG/ML (5.0-10.0) Imaging Last Impressions Lower Extremity CT 06/24/17 0000 Signed Impressions: Service Date/Time: June 16:35 - CONCLUSION: Small collection of air and fluid directly underneath the skin wound. Markedly edematous subcutaneous fat and skin thickening in the anteromedial thigh. Scott Holden MD PE at Discharge GENERAL: Patient sitting up in bed. Appears comfortable. SKIN: Warm and dry. HEAD: Normocephalic. EYES: No scleral icterus. No injection or drainage. NECK: Supple, trachea midline. CARDIOVASCULAR: Regular rate and rhythm without murmurs, gallops, or rubs. RESPIRATORY: Breath sounds equal bilaterally. No accessory muscle use. GASTROINTESTINAL: Abdomen soft, non-tender, nondistended. MUSCULOSKELETAL: No edema. Wound VAC to right groin wound, no erythema. Pt update on day of discharge Pt feeling well. Pain controlled. No nausea or vomiting. Tolerating diet. Happy to go home Hospital Course Pt admitted for sepsis. S/P I&D and wound vac placement. GS following and has ordered for wound vac to be removed and pt will require wet to dry dressing changes. ID also evaluated the patient. wound cx growing mixed anaerobes. Pt received IV vanc/zosyn and clinda. ID recommended switching him to po augmentin 500mg po TID for an additional 10 days. Scripts in chart. Pt Condition on Discharge: Stable Discharge Disposition: Discharge Home Discharge Time: > 30 minutes Discharge Instructions DIET: Follow Instructions for: As Tolerated, No Restrictions Activities you can perform: See Additionl Instruction Other Activity Instructions: wet-to-dry dressing Follow up Referrals: PCP Follow-up - 1 Week Surgical - 2 Weeks New Medications: Amoxicillin-Clavulanate (Augmentin) 500-125 mg Tab 500 MG PO Q8H for Infection for 10 Days, #30 TAB 0 Refills Ondansetron (Zofran) 4 Mg Tab 4 MG PO Q8HR PRN for NAUSEA OR VOMITING, #20 TAB 0 Refills Hydrocodone/Acetaminophen (Hydrocodone-Acetamin 5-325 mg) 5 Mg-325 Mg Tablet 1 TAB PO Q6HR PRN for pain 1-5, #20 Continued Medications: Aspirin (Aspirin) 81 Mg Chew 81 MG CHEW DAILY, TAB 0 Refills Lansoprazole (Prevacid) 15 Mg Capdr 15 MG PO DAILY, CAP 0 Refills Multiple Vitamin (Multiple Vitamin) 1 Tab 1 TAB PO DAILY for Nutritional Supplement, TAB 0 Refills Johanna Arce MD Jun 27, 2017 13:46
[2017-06-27] MEDS ORDERED: PHARMACY ORDERED LAB ONE (15:45)
== END 2017-06-27 14:09 | disposition home or self-care (01) | DRG 854 ==
LOC: NEPD 13:55 → NEDA 17:25 → NEDH 21:25 → NEPFCDU 22:06 → N07B 06-25 15:18
PROVIDERS: ADMIT Hospitalist; ATTEND Hospitalist
PROC: 0JBL0ZZ Excision of Right Upper Leg Subcutaneous Tissue and Fascia, Open Approach (ICD-10-PCS; principal; 2017-06-25 14:33)
DX: A41.9 Sepsis, unspecified organism (principal); L02.415 Cutaneous abscess of right lower limb; L03.314 Cellulitis of groin; K21.9 Gastro-esophageal reflux disease without esophagitis; R00.0 Tachycardia, unspecified; Z88.1 Allergy status to other antibiotic agents; Z85.46 Personal history of malignant neoplasm of prostate; Z72.0 Tobacco use
CPT/HCPCS: 73701; 80048; 80202; 82565; 83605; 85025; 85610; 85730; 86403; 87015; 87040; 87070; 87102; 87116; 87185; 87205; 87206; 93005; 96365; 96375; J1100; J1885; J2250; J2405; J2543; J3010; J3370; J7050; J7120; Q9967